=== PATIENT | female | born 1965 | race Caucasian/White ===

== ENCOUNTER 2018-08-07 10:23 | Emergency (ER) | payer BC, OTHER ==
[2018-08-07 11:41] VITALS: BP 114/69
--- NOTE | 2018-08-07 12:10 | UC ---
Throat Pain/Nasal Farhan HPI - HPI Summary HPI Summary: 2 week history of purulent nasal drainage, progressive cough, malaise, fatigue. Hx of mitral valve disease. - History of Current Complaint Chief Complaint: UCRespiratory Stated Complaint: SINUSES, COUGH Time Seen by Provider: 08/07/18 12:10 Hx Obtained From: Patient Hx Last Menstrual Period: 07/22/18 Onset/Duration: Gradual Onset, Lasting Weeks - 2 Severity: Moderate Pain Intensity: 6 Cough: Productive Associated Signs & Symptoms: Positive: Hoarseness, Sinus Discomfort, Nasal Discharge - Epiglottits Risk Factors Epiglottis Risk Factors: Negative - Allergies/Home Medications Allergies/Adverse Reactions: Allergies Allergy/AdvReac Type Severity Reaction Status Date / Time No Known Allergies Allergy Verified 08/07/18 11:35 Home Medications: Home Medications Nyquil DAILY PRN 08/07/18 [History] PMH/Surg Hx/FS Hx/Imm Hx - Additional Past Medical History Additional PMH: obese Previously Healthy: Yes Cardiovascular History: Other - hx of mitral valve ? incompetence. Other Cardiovascular History: mitral valve insufficiency Other History Of: Negative For: HIV, Hepatitis B, Hepatitis C, Anticoagulant Therapy - Surgical History Surgical History: Yes Surgery Procedure, Year, and Place: gall bladder 08/2010~ - Family History Known Family History: Positive: Diabetes - father - Social History Occupation: Employed Full-time Lives: With Family Alcohol Use: Occasionally Substance Use Type: None Smoking Status (MU): Never Smoked Tobacco - Immunization History Most Recent Influenza Vaccination: 08/17 Review of Systems Constitutional: Fatigue ENT: Sore Throat, Ear Ache, Sinus Congestion Neurological: Headache Is Patient Immunocompromised?: No All Other Systems Reviewed And Are Negative: Yes Physical Exam Triage Information Reviewed: Yes Appearance: Ill-Appearing - congested, unwell, frequent cough Vital Signs: Initial Vital Signs Temp 97.2 F 08/07/18 11:37 Pulse 67 08/07/18 11:37 Resp 18 08/07/18 11:37 BP 114/69 08/07/18 11:37 Pulse Ox 98 08/07/18 11:37 Eyes: Positive: Conjunctiva Clear ENT Exam: Other - hard wax right canal, left TM retracted and dull ENT: Positive: TM dull - on left Neck: Positive: Supple, Nontender, No Lymphadenopathy Respiratory: Positive: Decreased breath sounds, Wheezing - few upper airway wheeze. Cardiovascular: Positive: RRR, Murmur:Sys:Grade _?_/ - 1/6 lower left sternal border Neurological: Positive: Alert, Muscle Tone Normal Psychological Exam: Normal Skin Exam: Normal Throat Pain/Nasal Course/Dx - Course Course Of Treatment: amoxicillin for sinusitis. - Differential Dx/Diagnosis Differential Diagnosis/HQI/PQRI: Laryngitis, Pharyngitis, Sinusitis, Tonsillitis Provider Diagnoses: bacterial sinusitis. Discharge - Sign-Out/Discharge Documenting (check all that apply): Patient Departure All imaging exams completed and their final reports reviewed: No Studies - Discharge Plan Condition: Stable Disposition: HOME Prescriptions: Amoxicillin PO (*) [Amoxicillin 875 MG (*)] 875 mg PO BID #20 tab Patient Education Materials: Sinusitis (ED) Referrals: No Primary Care Phys,NOPCP [Primary Care Provider] - Additional Instructions: Take amoxicillin for treatment of sinusitis. use saline spray to relieve congestion. - Billing Disposition and Condition Condition: STABLE Disposition: Home
== END 2018-08-07 12:38 | disposition home or self-care (01) ==
LOC: UCCORT 10:23
DX: J32.8 Other chronic sinusitis (principal)
CPT/HCPCS: 99212; G0463

== ENCOUNTER 2018-10-15 20:42 | Emergency (ER) | payer BC, OTHER ==
--- OUTSIDE RECORDS SUMMARY | 2018-10-15 20:52 | XMS REPORT | Continuity of Care Document ---
:1965 External Reference #:[id number] Author Name Miguel Aburto MD Address [facility] [place] [address] Care Team Providers Name Role Phone Jose Godinez MD Care Team Information Cardiology Technologist Unavailable Jose Godinez MD Primary Care Physician Unavailable Payers Type Date Identification Numbers Payment Provider Subscriber Policy Number: [id number] [employer] Lissette West PayID: [id number] [address] [place] [address] Advance Directives Description No Information Available Problems Date Description Provider Status Onset: 09/08/2018 Epigastric pain Miguel Aburto MD Active Family History Date Family Member(s) Problem(s) Comments Father Diabetes Social History Type Date Description Comments Sex Unknown Tobacco Use Start: Unknown Patient has never smoked Smoking Status Reviewed: 09/08/18 Patient has never smoked Allergies, Adverse Reactions, Alerts Description No Known Drug Allergies Medications Medication Date Status Form Strength Qnty SIG Indications Ordering Provider Propranolol HCL Active Tablets 40mg take 1 Unknown 00 tablet by mouth four times a day Meloxicam Active Tablets 15mg Cornelio Gramajo M 00 D Immunizations Description No Information Available Vital Signs Date Vital Result Comment 09/08/2018 10:09am Height 62 inches 5'2" Weight 244.00 lb BP Systolic 154 mmHg BP Diastolic 83 mmHg Heart Rate 55 /min BMI (Body Mass Index) 44.6 kg/m2 Results Description No Information Available Procedures Date Code Description Status 08/16/2010 14853 Ercp RM Duct Stones/Debris/Calculi Completed 08/16/2010 00150 Ercp+Sphincterectomy/Papillotomy Completed Encounters Description No Information Available Plan of Treatment 09/08/2018 - Miguel Aburto, MDR10.13 Epigastric painComments:I had a very long discussion with the patient regarding her symptoms we did discuss peptic ulcer disease. We discussed stopping her meloxicam and aspirin. We discussed performing an upper endoscopy.She wants to think about these. We also discussed biopsying for celiac disease. She will think about all this and then call me back
[2018-10-15 20:54] VITALS: BP 127/72
--- NOTE | 2018-10-15 21:12 | UC ---
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 treated w/ amox. has been using sinex. pain over cheeks x 1 wk. no saline risne or flonase. uses saline spray w/o relief. no fevers/chiolls. no cough. - History of Current Complaint Chief Complaint: UCRespiratory Stated Complaint: SINUS Time Seen by Provider: 10/15/18 20:54 Hx Last Menstrual Period: 07/22/18 Pain Intensity: 5 - Allergies/Home Medications Allergies/Adverse Reactions: Allergies Allergy/AdvReac Type Severity Reaction Status Date / Time No Known Allergies Allergy Verified 10/15/18 20:55 PMH/Surg Hx/FS Hx/Imm Hx Previously Healthy: Yes Other History Of: Negative For: HIV, Hepatitis B, Hepatitis C, Anticoagulant Therapy - Surgical History Surgical History: Yes Surgery Procedure, Year, and Place: gall bladder 08/2010~ - Family History Known Family History: Positive: Diabetes - father Negative: Cardiac Disease, Hypertension, Renal Disease - Social History Alcohol Use: Occasionally Substance Use Type: None Smoking Status (MU): Never Smoked Tobacco - Immunization History Most Recent Influenza Vaccination: 08/17 Review of Systems All Other Systems Reviewed And Are Negative: Yes Constitutional: Positive: Fatigue Skin: Positive: Negative Eyes: Positive: Negative ENT: Positive: Sinus Congestion, Sinus Pain/Tenderness Respiratory: Positive: Negative Cardiovascular: Positive: Negative Gastrointestinal: Positive: Negative Genitourinary: Positive: Negative Motor: Positive: Negative Neurovascular: Positive: Negative Musculoskeletal: Positive: Negative Neurological: Positive: Negative Psychological: Positive: Negative Is Patient Immunocompromised?: No Physical Exam Triage Information Reviewed: Yes Appearance: No Pain Distress, Well-Nourished, Ill-Appearing - mild Vital Signs: Initial Vital Signs Temp 98.1 F 10/15/18 20:52 Pulse 65 10/15/18 20:52 Resp 16 10/15/18 20:52 BP 127/72 10/15/18 20:52 Pulse Ox 100 10/15/18 20:52 Vital Signs Reviewed: Yes Eye Exam: Normal ENT Exam: Normal ENT: Positive: Normal ENT inspection, Pharyngeal erythema - mild, + PND, no exudate, Nasal congestion, TMs normal, Sinus tenderness - left > right maxillary , Uvula midline. Negative: Hoarse voice Neck exam: Normal Neck: Positive: Supple, Nontender, No Lymphadenopathy Respiratory Exam: Normal Respiratory: Positive: Lungs clear, Normal breath sounds, No respiratory distress, No accessory muscle use. Negative: Crackles, Rhonchi, Stridor, Wheezing Cardiovascular Exam: Normal Cardiovascular: Positive: RRR, No Murmur, Pulses Normal Abdominal Exam: Normal Abdomen Description: Positive: Nontender, Soft Musculoskeletal Exam: Normal Neurological Exam: Normal Psychological Exam: Normal Skin Exam: Normal Throat Pain/Nasal Course/Dx - Course Course Of Treatment: sinsuitis. -amox, probiotic, saline lavage, flonase. - stop sinex and.or afrin after 3 days - Differential Dx/Diagnosis Differential Diagnosis/HQI/PQRI: Laryngitis, Sinusitis, URI Provider Diagnosis: Sinusitis Discharge - Sign-Out/Discharge Documenting (check all that apply): Patient Departure All imaging exams completed and their final reports reviewed: No Studies - Discharge Plan Condition: Stable Disposition: HOME Prescriptions: Amoxicillin PO (*) [Amoxicillin 875 MG (*)] 875 mg PO BID #20 tab Patient Education Materials: Sinusitis (ED) Referrals: Ramona Moreno NP [Primary Care Provider] - Additional Instructions: -Make sure to take a probiotic daily while on antibiotics to help prevent a potential complication of antibiotic use called c diff. Some well known brands that can be found OTC are floraTicTacTior, Recycled Hydro Solutions and prettysecrets. Make sure to complete the entire prescription unless advised otherwise by your health care provider. -Don't use sinex or afrin for more than 3 consecutive days. -Use flonase nasal spray instead. If you use this after using a netti pot or saline rinse (with distilled water) it is even more effective. - Billing Disposition and Condition Condition: STABLE Disposition: Home
== END 2018-10-15 21:21 | disposition home or self-care (01) ==
LOC: UCCORT 20:42
DX: J32.9 Chronic sinusitis, unspecified (principal)
CPT/HCPCS: 99212; G0463

== ENCOUNTER 2019-05-02 14:50 | Emergency (ER) | payer BC, OTHER ==
[2019-05-02 15:29] VITALS: BP 128/56
--- NOTE | 2019-05-02 15:42 | ED ---
GI/ HPI - HPI Summary HPI Summary: 53 yr old female with the complaint of dysuria, frequency and increased hesitancy of urination. Onset about two weeks ago. No fever. Slight back pain. She gets yeast infections with antibiotic use. - History of Current Complaint Chief Complaint: UCGU Time Seen by Provider: 05/02/19 15:32 Stated Complaint: URINARY Hx Last Menstrual Period: 04/21/19 Pain Intensity: 3 - Allergy/Home Medications Allergies/Adverse Reactions: Allergies Allergy/AdvReac Type Severity Reaction Status Date / Time No Known Allergies Allergy Verified 05/02/19 15:23 PMH/Surg Hx/FS Hx/Imm Hx Endocrine/Hematology History: Denies: Hx Anticoagulant Therapy, Hx Diabetes, Hx Thyroid Disease Cardiovascular History: Denies: Hx Congestive Heart Failure, Hx Deep Vein Thrombosis, Hx Hypertension , Hx Myocardial Infarction, Hx Pacemaker/ICD Respiratory History: Denies: Hx Asthma, Hx Chronic Obstructive Pulmonary Disease (COPD), Hx Lung Cancer, Hx Pneumonia, Hx Pulmonary Embolism GI History: Denies: Hx Gall Bladder Disease, Hx Gastrointestinal Bleed, Hx Ulcer, Hx Urosepsis History: Denies: Hx Kidney Stones, Hx Renal Disease Neurological History: Denies: Hx Dementia, Hx Migraine, Hx Seizures, Hx Transient Ischemic Attacks (TIA) Psychiatric History: Denies: Hx Anxiety, Hx Depression, Hx Schizophrenia, Hx Bipolar Disorder - Surgical History Surgery Procedure, Year, and Place: gall bladder 08/2010~ Infectious Disease History: No Infectious Disease History: Reports: Hx Hepatitis - 1989 From food Denies: Traveled Outside the [place] in Last 30 Days - Family History Known Family History: Positive: Diabetes - father Negative: Cardiac Disease, Hypertension, Renal Disease - Social History Alcohol Use: Rare Substance Use Type: Reports: None Smoking Status (MU): Never Smoked Tobacco Review of Systems Positive: dysuria, frequency, urgency All Other Systems Reviewed And Are Negative: Yes Physical Exam Triage Information Reviewed: Yes Vital Signs On Initial Exam: Initial Vitals Temp Pulse Resp BP Pulse Ox 98.1 F 61 14 128/56 98 05/02/19 15:25 05/02/19 15:25 05/02/19 15:25 05/02/19 15:25 05/02/19 15:25 Vital Signs Reviewed: Yes Appearance: Positive: Well-Appearing, No Pain Distress Skin: Positive: Warm, Skin Color Reflects Adequate Perfusion Head/Face: Positive: Normal Head/Face Inspection Eyes: Positive: EOMI, LORRI ENT: Positive: Normal ENT inspection Neck: Positive: Nontender Respiratory/Lung Sounds: Positive: Clear to Auscultation, Breath Sounds Present Cardiovascular: Positive: RRR. Negative: Murmur Abdomen Description: Positive: Nontender. Negative: CVA Tenderness (R), CVA Tenderness (L), Distended Musculoskeletal: Positive: Strength/ROM Intact Neurological: Positive: Sensory/Motor Intact, Alert, Oriented to Person Place, Time, CN Intact II-III, Speech Normal Diagnostics - Vital Signs Vital Signs Temp Pulse Resp BP Pulse Ox 05/02/19 15:25 98.1 F 61 14 128/56 98 - Laboratory Lab Results: Lab Results 05/02/19 Range/Units 15:08 POC Urine Color Yellow POC Urine Clarity Clear POC Urine pH 5.5 (5-9) POC Ur Specif [place] 1.010 (1.010-1.030) POC Urine Protein Negative (Negative) POC Ur Glucose (UA) Negative (Negative) POC Urine Ketones Negative (Negative) POC Urine Blood Negative (Negative) POC Urine Nitrite Negative (Negative) POC Urine Bilirubin Negative (Negative) POC Urine Urobilinogen 0.2 (Negative) POC U Leukocyte Esteras Trace A (Negative) Lab Statement: Any lab studies that have been ordered have been reviewed, and results considered in the medical decision making process. GIGU Course/Dx - Course Course Of Treatment: 53 yr old with UTI. Dc home on bactrim. Diflucan also given. - Diagnoses Provider Diagnoses: UTI (urinary tract infection) Discharge - Sign-Out/Discharge Documenting (check all that apply): Patient Departure All imaging exams completed and their final reports reviewed: No Studies - Discharge Plan Condition: Good Disposition: HOME Prescriptions: Fluconazole 150 MG TAB* [Diflucan 150 MG TAB*] 150 mg PO ONCE #1 tablet Sulfamethox/Trimethoprim DS* [Bactrim DS 800/160 TAB*] 1 tab PO BID #14 tab Patient Education Materials: Urinary Tract Infection in Women (DC) Referrals: Ramona Moreno NP [Primary Care Provider] - 2 Days - Billing Disposition and Condition Condition: GOOD Disposition: Home
--- NOTE | 2019-05-04 07:04 | UC ---
- Progress Note Progress Note: awaiting final report prelim 25-50,000 p.mirabilis Course/Dx - Diagnoses Provider Diagnoses: UTI (urinary tract infection) Discharge - Sign-Out/Discharge Documenting (check all that apply): Post-Discharge Follow Up All imaging exams completed and their final reports reviewed: No Studies - Discharge Plan Condition: Good Disposition: HOME Prescriptions: Fluconazole 150 MG TAB* [Diflucan 150 MG TAB*] 150 mg PO ONCE #1 tablet Sulfamethox/Trimethoprim DS* [Bactrim DS 800/160 TAB*] 1 tab PO BID #14 tab Patient Education Materials: Urinary Tract Infection in Women (DC) Referrals: Ramona Moreno NP [Primary Care Provider] - 2 Days - Billing Disposition and Condition Condition: GOOD Disposition: Home
== END 2019-05-02 15:44 | disposition home or self-care (01) ==
LOC: UCCORT 14:50
DX: N39.0 Urinary tract infection, site not specified (principal)
CPT/HCPCS: 81003; 87077; 87086; 87186; 99212; G0463

== ENCOUNTER 2019-08-22 07:05 | Emergency (ER) | payer OTHER, BC ==
[2019-08-22 07:13] VITALS: BP 146/60
--- NOTE | 2019-08-22 07:20 | UC ---
Abdominal Pain Female HPI - HPI Summary HPI Summary: Patient's a 53-year-old gentleman who states about 36 hours ago shows some lower abdominal cramping and diarrhea. Patient states yesterday pain was around her bellybutton and progressed to her right lower quadrant. Patient with nausea but no vomiting. Patient states she's had a tactile fever. No back pain. No vaginal discharge, itching, odor. No dysuria hematuria. No analgesic taken. Patient is status post cholecystectomy and right oophorectomy. Patient has had colonoscopies in the past that have always been clear no diverticulitis. Patient's medications at this visit. Patient does have psoriatic arthritis but is not on any immunosuppressive agents - History of Current Complaint Chief Complaint: UCAbdominalPain Stated Complaint: side pain Time Seen by Provider: 08/22/19 07:15 Hx Obtained From: Patient Hx Last Menstrual Period: 04/21/19 Pain Intensity: 8 Allergies/Adverse Reactions: Allergies Allergy/AdvReac Type Severity Reaction Status Date / Time No Known Allergies Allergy Verified 08/22/19 07:17 Home Medications: Home Medications Aspirin 81 mg CHEW TAB* [Aspirin Low Dose TAB*] 81 mg PO DAILY 08/22/19 [ History Confirmed 08/22/19] Ferrous Sulfate TAB* 325 mg PO DAILY 08/22/19 [History Confirmed 08/22/19] Meloxicam(NF) [Mobic(NF)] 15 mg PO DAILY 08/22/19 [History Confirmed 08/22/19] PMH/Surg Hx/FS Hx/Imm Hx Previously Healthy: Yes - psoriatic arthritis, heart mumur GI/ History: Other - ovarian cyst Other History Of: Negative For: HIV, Hepatitis B, Hepatitis C, Anticoagulant Therapy - Surgical History Surgical History: Yes Surgery Procedure, Year, and Place: Cholecystectomy, 2010, [place], right oophorectomy - Family History Known Family History: Positive: Diabetes - father, Non-Contributory Negative: Cardiac Disease, Hypertension, Renal Disease - Social History 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 Negative: Vomiting Genitourinary: Positive: Negative Motor: Positive: Negative Neurological: Positive: Negative Psychological: Positive: Negative Is Patient Immunocompromised?: No Physical Exam - Summary Physical Exam Summary: Vital Signs Reviewed: Yes A+Ox3, no distress Eyes: Conjunctiva Clear, LORRI. EOM intact and full ENT: Hearing grossly normal TM x 2 clear, mmoist, uvula midline, no exudate, no erythema Neck: Positive: Supple Respiratory: Positive: No respiratory distress, No accessory muscle use + CTA throughout no w/r Cardiovascular: RRR nl s1, s2 no m/r CBT <2 sec abd: soft nd, + TTP RLQ, no CVA, no guarding, no distension Musculoskeletal Exam: AYALA x 4 without difficulty Strength Intact, ROM Intact Neurological: Positive: Alert, + sensation throughout Psychological: Positive: Normal Response To Family Skin: Positive: no rash, no ecchymosis was also normal Triage Information Reviewed: Yes Vital Signs: Initial Vital Signs Temp 99.4 F 08/22/19 07:06 Pulse 82 08/22/19 07:06 Resp 15 08/22/19 07:06 BP 146/60 08/22/19 07:06 Pulse Ox 100 08/22/19 07:06 Abd Pain Female Course/Dx - Course Course Of Treatment: Patient presents to urgent care reporting right lower quadrant pain has been present last 4 hours. Patient states her symptoms started with some diarrhea. Patient with a low-grade temperature nausea. No urinary or vaginal symptoms. No history of similar. Patient vital signs are stable. Patient with focal right lower quadrant pain concerning for acute appendicitis. Patient has had colonoscopies as diverticulitis. Patient does not have signs and symptoms removed for cyst. Patient deferred to also includes small bowel obstruction related to scar tissue. Discussed with patient. Urinalysis is completely normal urgent care. Recommend patient emergency department for further evaluation. Patient initially stated to call and make a report to Bozena Logan nurse practitioner in the ED. Patient did change her mind that she was going to [place]. Pt advised to remain NPO until ED eval. - Differential Dx/Diagnosis Provider Diagnosis: RLQ abdominal pain Discharge ED - Sign-Out/Discharge Documenting (check all that apply): Patient Departure All imaging exams completed and their final reports reviewed: No Studies - Discharge Plan Condition: Stable Disposition: HOME-RECOMMEND TO ED Patient Education Materials: Abdominal Pain (ED) Referrals: Ramona Moreno NP [Primary Care Provider] - Additional Instructions: The doctor that evaluated you today thinks that you need additional testing that can be completed the emergency department. It is recommended that you go directly to emergency department for further evaluation. This evaluation included blood work or imaging. This testing will be directed and decided by the provider that evaluates you at the emergency department. If pain becomes worse, you feel lightheaded, you have uncontrolled vomiting, or you have any other concerns while you are being driven to emergency department as recommended to pullover contact 911. You will be triaged and treated according to the process at the emergency department where you are evaluated. - Billing Disposition and Condition Condition: STABLE Disposition: Home-Recommend to ED
--- OUTSIDE RECORDS SUMMARY | 2019-08-22 07:37 | XMS REPORT | Continuity of Care Document ---
:1965 External Reference #:[id number] Author Name Chace Kumar NP Address [address] [place] [address] Problems Active Problems Provider Date Localized, primary osteoarthritis of the shoulder Carlos Soriano MD Onset: 08/2019 region Knee pain Carlos Soriano MD Onset: 11/15/2018 Localized, primary osteoarthritis Carlos Soriano MD Onset: 11/15/2018 Social History Type Date Description Comments Sex Unknown ETOH Use 03/02/2019 Denies alcohol use Tobacco Use Reviewed: 07/12/19 Patient has never smoked Smoking Status Reviewed: 07/12/19 Patient has never smoked Allergies, Adverse Reactions, Alerts Description No Known Drug Allergies Medications Active Medications SIG Qnty Indications Ordering Provider Date Meloxicam Cornelio Gramajo MD 15mg Tablets Propranolol Jose Aquino MD 40mg Tablets Medications Administered in Office Medication SIG Qnty Indications Ordering Provider Date Euflexxa NDC [address]-67 Chace Kumar NP 06/15/2019 Injection Euflexxa NDC [address]-40 Chace Kumar NP 06/15/2019 Injection Inject/Drain Arthrocentesis Moe Kumar NP 06/15/2019 Joint/Bursa/Ganglion Cyst Injection Inject/Drain Arthrocentesis Moe Kumar NP 06/15/2019 Joint/Bursa/Ganglion Cyst Injection Euflexxa NDC [address]-52 Chace Kumar NP 06/08/2019 Injection Euflexxa NDC [address]-76 Chace Kumar NP 06/08/2019 Injection Inject/Drain Arthrocentesis Moe Kumar NP 06/08/2019 Joint/Bursa/Ganglion Cyst Injection Inject/Drain Arthrocentesis Moe Kumar METALLURGICAL TECHNICIAN 06/08/2019 Joint/Bursa/Ganglion Cyst Injection Euflexxa NDC [address]-93 Chace Kumar, METALLURGICAL TECHNICIAN 06/01/2019 Injection Euflexxa NDC [address]-85 Chace Kumar, METALLURGICAL TECHNICIAN 06/01/2019 Injection Inject/Drain Arthrocentesis Major Chace Kumar, METALLURGICAL TECHNICIAN 06/01/2019 Joint/Bursa/Ganglion Cyst Injection Inject/Drain Arthrocentesis Major Chace Kumar, METALLURGICAL TECHNICIAN 06/01/2019 Joint/Bursa/Ganglion Cyst Injection Euflexxa NDC [address]-98 Chace Kumar, METALLURGICAL TECHNICIAN 11/30/2018 Injection Euflexxa NDC [address]-36 Chace Kumar, METALLURGICAL TECHNICIAN 11/30/2018 Injection Inject/Drain Arthrocentesis Major Chace Kumar, METALLURGICAL TECHNICIAN 11/30/2018 Joint/Bursa/Ganglion Cyst Injection Inject/Drain Arthrocentesis Major Chace Kumar, METALLURGICAL TECHNICIAN 11/30/2018 Joint/Bursa/Ganglion Cyst Injection Euflexxa NDC [address]-91 Chace Kumar, METALLURGICAL TECHNICIAN 11/23/2018 Injection Euflexxa NDC [address]-61 Chace Kumar, METALLURGICAL TECHNICIAN 11/23/2018 Injection Inject/Drain Arthrocentesis Major Chace Kumar, METALLURGICAL TECHNICIAN 11/23/2018 Joint/Bursa/Ganglion Cyst Injection Inject/Drain Arthrocentesis Major [place] Kumar, METALLURGICAL TECHNICIAN 11/23/2018 Joint/Bursa/Ganglion Cyst Injection Euflexxa NDC [address]-21 Carlos Soriano MD 11/15/2018 Injection Euflexxa NDC [address]-49 Carlos Soriano MD 11/15/2018 Injection Inject/Drain Arthrocentesis Major Carlos Soriano MD 11/15/2018 Joint/Bursa/Ganglion Cyst Injection Inject/Drain Arthrocentesis Major Carlos Soriano MD 11/15/2018 Joint/Bursa/Ganglion Cyst Injection Immunizations Description No Information Available Vital Signs Date Vital Result Comment 07/12/2019 2:51pm Pain Level 4 06/01/2019 4:15pm Pain Level 0 Results Description No Information Available Procedures Date Code Description Status 06/15/201947578 Inject/Drain Arthrocentesis Major Joint/Bursa/Ganglion Completed Cyst 06/15/2019 Inject/Drain Arthrocentesis Major Joint/Bursa/Ganglion Completed Cyst 06/08/2019 Inject/Drain Arthrocentesis Major Joint/Bursa/Ganglion Completed Cyst 06/08/2019 Inject/Drain Arthrocentesis Major Joint/Bursa/Ganglion Completed Cyst 06/01/2019 Inject/Drain Arthrocentesis Major Joint/Bursa/Ganglion Completed Cyst 06/01/2019 Inject/Drain Arthrocentesis Major Joint/Bursa/Ganglion Completed Cyst Medical Devices Description No Information Available Encounters Type Date Location Provider Dx Diagnosis Office Visit 03/01/2019 [facility] Chace Kumar, M17.0 Bilateral primary 4:15p Main Office METALLURGICAL TECHNICIAN osteoarthritis of knee Assessments Date Code Description Provider 07/12/2019 M17.11 Unilateral primary osteoarthritis, right knee hCace Kumar NP 07/12/2019 M17.12 Unilateral primary osteoarthritis, left knee Chace Kumar NP 07/12/2019 M17.0 Bilateral primary osteoarthritis of knee Chace Kumar NP 06/15/2019 M17.11 Unilateral primary osteoarthritis, right knee Chace Kumar NP 06/15/2019 M17.12 Unilateral primary osteoarthritis, left knee Chace Kumar NP 06/08/2019 M17.11 Unilateral primary osteoarthritis, right knee Chace Kumar NP 06/08/2019 M17.12 Unilateral primary osteoarthritis, left knee Chace Kumar NP 06/01/2019 M17.11 Unilateral primary osteoarthritis, right knee Chace Kumar NP 06/01/2019 M17.12 Unilateral primary osteoarthritis, left knee Chace Kumar NP 03/01/2019 M17.0 Bilateral primary osteoarthritis of knee Chace Kumar NP Plan of Treatment Future Appointment(s):01/03/2020 9:00 am - Chace Kumar NP at [facility] Main [place]6512/27/2019 9:00 am - Chace Kumar NP at [facility] Main Kemit[place]0012/20/2019 9:00 am - Chace Kumar NP at [facility] Main [place]2807/12/2019 - Chace Kumar NPM17.11 Unilateral primary osteoarthritis, right kneeM17.12 Unilateral primary osteoarthritis, left kneeM17.0 Bilateral primary osteoarthritis of kneeComments:Patient will follow up in December with Dr. Soriano as scheduled. If pain worsens before then and she needs a repeat cortisone injection she will contact me.All questions were answered to the patient's satisfaction. They are in agreement with this plan. Functional Status Description No Information Available Mental Status Description No Information Available Referrals Description No Information Available
== END 2019-08-22 07:34 | disposition home health service (06) ==
LOC: UCCORT 07:05
DX: R10.31 Right lower quadrant pain (principal); R19.7 Diarrhea, unspecified; R11.2 Nausea with vomiting, unspecified; L40.50 Arthropathic psoriasis, unspecified; Z79.1 Long term (current) use of non-steroidal anti-inflammatories (NSAID)
CPT/HCPCS: 81003; 99212; G0463